=== PATIENT | female | born 2000 | race Caucasian/White ===

== ENCOUNTER 2024-07-08 17:33 | Emergency (ER) | payer SELFPAY ==
[2024-07-08 17:37] VITALS: BP 133/97
[2024-07-08 19:49] VITALS: BP 128/79
--- NOTE | 2024-07-08 19:49 | ED.GENMED ---
History of Present Illness
General
Chief Complaint: Head Injury
Source: patient
Time Seen by Provider: 07/08/24 19:15
History of Present Illness
History of Present Illness:
23-year-old female with no significant past medical history presents emergency department for evaluation after she was accidentally struck in the head by a ceiling fan that was on highest setting causing her to sustain a small laceration to the
right frontotemporal region earlier this morning. Due to continued oozing from the left small laceration site patient send come to the ER for further evaluation. She notes that there is some mild tenderness over the laceration site but otherwise
denies any significant headache, LOC, vomiting, visual changes or any other concerns
Past History
Past History
ED Past Medical History: None
ED Past Surgical History: None
Social History
Tobacco: Non-smoker
Alcohol: None
Drug: None
Personal: Single
Living: with family
Review of Systems
Review of Systems
All Other Systems: ROS reviewed and negative except as documented in HPI and ROS
Phy Exam
Physical Exam
Physical Exam:
GENERAL: Alert , in no apparent distress
EYE: conjunctiva clear
Head: Normocephalic atraumatic
NECK: Supple,
ENT: mmm.
LUNGS: no acute respiratory distress
NEUROLOGICAL: Alert and oriented
SKIN: Warm and dry, less than 1 cm laceration to the right frontotemporal region with a very slight ooze but no active bleed
MUSCULOSKELETAL: well perfused.
PSYCH: Normal and appropriate interaction.
Scores
Heart Failure Risk
Heart Failure Risk Score: Not Applicable
Heart Score for Chest Pain Patients
STEMI patient?: Not applicable
Withdrawal Assessment of Alcohol
Withdrawal Assessment Completed?: Not applicable
Course
Vital Signs
Initial and Last Documented VS:
Initial Vital Signs
Temp Pulse Resp BP Pulse Ox
98.1 F 81 22 133/97 99
07/08/24 17:37 07/08/24 17:37 07/08/24 17:37 07/08/24 17:37 07/08/24 17:37
Last Documented Vital Signs
Temp Pulse Resp BP Pulse Ox
98.1 F 78 16 128/79 99
07/08/24 17:37 07/08/24 19:49 07/08/24 19:49 07/08/24 19:49 07/08/24 17:37
Procedures
Laceration Closure
Right Parietal:
Status of Wound: clean
Size of Wound in cm: 0.9
Description of Wound Edges: sharp
Preparation: cleaned with saline
Type of Closure: single layer closure
Skin Closure Material: skin jose
Number of sutures: 1
MDM/Problems Addressed
Differential Diagnosis Includes:
Superficial laceration, contusion, concussion, intracranial bleeding
MDM/Problems Addressed:
23-year-old female presenting to the ER for evaluation of a superficial laceration to the right scalp sustained when she was excellently hit by a ceiling fan earlier this morning. Laceration repaired as above without any difficulty. Had discussion
with patient and mother about CT imaging and given it has been multiple hours since the injury, patient is otherwise asymptomatic we decided to forego CT imaging but discussed return precautions for head injury. Patient expressed understanding.
Staple removal in 5 days.
*Pulse Oximetry
Patient hypoxic: no
*Critical Care Note
Total Time (30-74mins, 75-104mins- exclusive of procedures): Not Applicable
ED Attending Note
-
Portions of this chart may have been created with voice recognition software.� Occasional wrong word or��sound alike� substitutions may have occurred due to the inherent limitations of voice recognition software.
Discharge Plan
Departure
Patient Disposition: Home (Routine Discharge)
Date of Disposition: 07/08/24
Time of Disposition: 19:49
Patient with high blood pressure during this ER visit?: Yes
Discharge Problem:
Head injury, Laceration of scalp
Instructions: Concussion, Adult (DC), Laceration Repair With Jose (DC)
Referrals:
NONE,* [Family Provider] -
Activity Restrictions/Additional Instructions:
Staple removal in 5 days
Interventions
Interventions:
*Risk Screen - Suicide Last Done: 07/08/24 17:37
*General Assessment Last Done: 07/08/24 17:37
*Neglect/Abuse Screening Last Done: 07/08/24 17:37
*ED- Fall Risk Assessment Last Done: 07/08/24 19:48
*ED COVID-19 Vaccine History Last Done: 07/08/24 19:48
*Nursing Disposition Last Done: 07/08/24 19:53
ED- Neurological Assessment Last Done: 07/08/24 19:53
Discharge Date and Time
Discharge Date/Time: 07/08/24 19:53
Print Language: [id number]
== END 2024-07-08 19:53 | disposition home or self-care (01) ==
LOC: EMR 17:33
PROVIDERS: EMERGENCY PHYSICIAN Emergency Medicine
DX: S09.90XA Unspecified injury of head, initial encounter (principal); S01.01XA Laceration without foreign body of scalp, initial encounter; W22.8XXA Striking against or struck by other objects, initial encounter
CPT/HCPCS: 99282; 12001